=== PATIENT | female | born 1940 | race Hispanic/Latino ===

== ENCOUNTER 2016-06-21 14:25 | Observation (INO) ==
[2016-06-21] MEDS ORDERED: ASPIRIN PO STA (14:29)
--- NOTE | 2016-06-21 14:38 | EKG Report ---
Test Performed on : 06/21/2016 2:26:51 PM Test Reason : CHEST PAIN Blood Pressure : / mmHG Vent. Rate : 072 BPM Atrial Rate : 072 BPM P-R Int : 108 ms QRS Dur : 078 ms QT Int : 384 ms P-R-T Axes : 056 063 059 degrees QTc Int : 420 ms Sinus rhythm. with short IL Otherwise normal ECG When compared with ECG of 10-JUN-2016 11:16, No significant change was found Unconfirmed Result
[2016-06-21 14:53] LABS: MANUAL DIFF NEEDED? NO
[2016-06-21 14:56] LABS: BASO% 0.9 % (0.0-0.8); EOS# 0.12 X1000 (0.0-0.7); EOS% 1.7 % (0.0-10.0); HEMATOCRIT 37.6 % (37.0-47.0); HEMOGLOBIN 12.8 g/dL (12.0-16.0); IMM GRAN# 0.02 X1000 (0.0-0.04); IMM GRAN% 0.3 % (0.0-0.5); LYMPH# 2.18 X1000 (1.2-3.4); LYMPH% 31.2 % (20.5-51.1); MCH 32.3 PG (27-31); MCV 94.9 FL (81-99); MONO# 0.92 X1000 (0.11-0.59); MONO% 13.2 % (1.7-9.3); MPV 10.5 FL (7.4-10.4); NEUT% 52.7 % (42.2-75.2); PLT 236 X1000 (130-400); RBC 3.96 XMIL (4.2-5.4)
[2016-06-21 15:10] LABS: INR 0.93 (0.86-1.15); PROTIME 12.8 Seconds (12.1-15.5)
[2016-06-21 15:11] LABS: PTT PL 31.5 Seconds (22.6-43.9)
--- NOTE | 2016-06-21 15:19 | Diag Imaging Result Document ---
PROCEDURE NAME: CHEST-2 VIEWS - 06/21/2016 PA AND LATERAL RADIOGRAPH OF THE CHEST: COMPARISON: None available. FINDINGS: There is biapical pleural thickening. The lungs are grossly clear, otherwise. There is no definite pleural fluid collection. Cardiac silhouette and central vasculature are grossly unremarkable. IMPRESSION: Biapical pleural thickening. No evidence of acute pathology.
[2016-06-21 15:29] LABS: AGAP 14; ALBUMIN 4.3 g/dL (3.5-5.0); ALKALINE PHOSPHATASE 161 U/L (32-104); BUN 15 mg/dL (8-22); CALCIUM 9.6 mg/dL (8.8-10.2); CHLORIDE 102 mmol/L (98-107); CK PROFILE 84 U/L (24-173); COSMO 283; GOT 47 U/L (10-30); GPT 36 U/L (10-36); MAGNESIUM 2.1 mg/dL (1.5-2.7); POTASSIUM 3.4 mmol/L (3.5-5.1); SODIUM 140 mmol/L (136-145); TCO2 23 mmol/L (25-35)
--- NOTE | 2016-06-21 16:49 | EKG Report ---
Test Performed on : 06/21/2016 4:35:50 PM Test Reason : REPEAT Blood Pressure : / mmHG Vent. Rate : 062 BPM Atrial Rate : 062 BPM P-R Int : 128 ms QRS Dur : 078 ms QT Int : 414 ms P-R-T Axes : 075 072 082 degrees QTc Int : 420 ms Normal sinus rhythm. Normal ECG When compared with ECG of 21-JUN-2016 14:26, (Unconfirmed) No significant change was found Unconfirmed Result
[2016-06-21] MEDS ORDERED: MORPHINE IV PRN (17:43)
[2016-06-21] MEDS ORDERED: ZOFRAN IV PRN (17:43)
--- NOTE | 2016-06-21 17:44 | PROVIDER DOCUMENTATION ---
This chart was entered by Debbie Savage Scribe, acting as scribe for Buddy Cazares PA. HPI-Chest Pain - General Chief Complaint: Chest Pain Stated Complaint: CHEST PAIN Time Seen by Provider: 06/21/16 14:31 Source: patient Allergies/Adverse Reactions: Patient Allergies Allergy/AdvReac Type Severity Reaction Status Date / Time Penicillins Allergy Mild RASH Verified 06/21/16 14:29 Home Medications: Home Medication List Medication Instructions Recorded Confirmed Last Taken Type No Home Medications 06/22/12 06/22/12 Unknown History - History of Present Illness-CP Nature of Presenting Problem: 75 yo F presents to the ER with complaint of CP. States she had a similar episode last week. Yesterday had CP again so she went to her PCP, pain resolved by the time she got to Dr. Curran's office, PCP advised that if she ever had that pain again to go to the ER. Had L sided chest pain that radiates to the R. Location: reports: other (L sided) Chest Pain Radiation: reports: other (R side) Onset/Duration: just prior to arrival Nitro Today/Relief: no nitro taken today Aspirin Treatment Today: no aspirin today Review of Systems - Adult - REVIEW OF SYSTEMS - ADULT Constitutional: denies: chills, fever Eyes: reports: no symptoms reported Ears, Nose, Mouth & Throat: reports: no symptoms reported Cardiovascular: reports: chest pain. denies: palpitations Respiratory: denies: cough, shortness of breath Gastrointestinal: denies: diarrhea, nausea, vomiting Genitourinary: reports: no symptoms reported Musculoskeletal: reports: no symptoms reported Integumentary: reports: no symptoms reported Neurological: reports: no symptoms reported Psychiatric: reports: no symptoms reported Endocrine: reports: no symptoms reported Hematologic/Lymphatic: reports: no symptoms reported Allergic/Immunologic: reports: no symptoms reported All Other Systems: Reviewed and Negative Past History - Adult - PAST MEDICAL HISTORY-ADULT Review of Records: reports: Nursing Assessment Review, Medications Reviewed Cardiovascular: reports: HTN - PRIOR SURGERIES/PROCEDURES Surgical/Procedure History: reports: other (peritonitis) - IMMUNIZATION STATUS Childhood Immunizations: See Nurse Assessment Flu Vaccine: See Nurse Assessment Physical Exam-General - PHYSICAL EXAM-ADULT Initial Vital Signs Reviewed: Yes - CONSTITUTIONAL General Appearance: alert, no apparent distress - EYES Eyes: PERRL/EOMI, pink conjunctivae - HEAD, EARS, NOSE, MOUTH & THROAT HENMT: normocephalic/atraumatic, normal ENT inspection - NECK Neck: supple, normal inspection - RESPIRATORY Respiratory: no respiratory distress, no accessory muscle use - CARDIOVASCULAR Cardiovascular: normal peripheral pulses, regular rate, rhythm - GASTROINTESTINAL (ABDOMEN) Abdominal Exam: normal bowel sounds, non tender, soft - MUSCULOSKELETAL Back Exam: no CVA tenderness, no vertebral tenderness Extremity: normal gait, normal inspection - SKIN Integumentary: normal color, warm/dry - NEUROLOGIC Neurologic: grossly normal, no motor/sensory deficits - PSYCHIATRIC Psych/Mental Status: normal mood/affect, normal thought content, normal thought process, oriented x 3 Progress - PLAN OF CARE/RESULTS Progress/Plan/Lab Results: Vital Signs - 8 hr 06/21/16 14:30 06/21/16 16:07 06/21/16 16:55 Temperature 98.5 F 98 F Pulse Rate 74 62 62 Respiratory Rate 18 20 18 Blood Pressure 169/86 138/77 159/078 O2 Sat by Pulse Oximetry 98 97 95 Laboratory Results - last 24 hr 06/21/16 06/21/16 06/21/16 14:45 14:45 14:45 WBC RBC Hgb Hct MCV MCH MCHC RDW Std Deviation Plt Count MPV Immature Gran % (Auto) Neut % (Auto) Lymph % (Auto) Sampson % (Auto) Eos % (Auto) Baso % (Auto) Immature Gran # (Auto) Neut # (Auto) Lymph # (Auto) Sampson # (Auto) Eos # (Auto) Baso # (Auto) PT INR APTT (Factor Assay) D-Dimer Sodium 140 Potassium 3.4 L Chloride 102 Carbon Dioxide 23 L Anion Gap 14 BUN 15 Creatinine 0.7 Estimated GFR/1.73 m2 > 60 BUN/Creatinine Ratio 21 Glucose 142 H Calculated Osmolality 283 Calcium 9.6 Magnesium 2.1 Total Bilirubin 0.30 AST 47 H ALT 36 Alkaline Phosphatase 161 H Creatine Kinase 84 Troponin T < 0.010 [id number]-A-[id number] Pept 346 Total Protein 8.0 Albumin 4.3 Globulin 4.0 Albumin/Globulin Ratio 1.0 06/21/16 06/21/16 06/21/16 14:45 14:45 16:40 WBC 6.99 RBC 3.96 L Hgb 12.8 Hct 37.6 MCV 94.9 MCH 32.3 H MCHC 34.0 RDW Std Deviation 11.8 Plt Count 236 MPV 10.5 H Immature Gran % (Auto) 0.3 Neut % (Auto) 52.7 Lymph % (Auto) 31.2 Sampson % (Auto) 13.2 H Eos % (Auto) 1.7 Baso % (Auto) 0.9 H Immature Gran # (Auto) 0.02 Neut # (Auto) 3.69 Lymph # (Auto) 2.18 Sampson # (Auto) 0.92 H Eos # (Auto) 0.12 Baso # (Auto) 0.06 PT 12.8 INR 0.93 APTT (Factor Assay) 31.5 D-Dimer 0.47 Sodium Potassium Chloride Carbon Dioxide Anion Gap BUN Creatinine Estimated GFR/1.73 m2 BUN/Creatinine Ratio Glucose Calculated Osmolality Calcium Magnesium Total Bilirubin AST ALT Alkaline Phosphatase Creatine Kinase 78 Troponin T Hxs-L-Pywvdigzamw Pept Total Protein Albumin Globulin Albumin/Globulin Ratio 06/21/16 16:40 WBC RBC Hgb Hct MCV MCH MCHC RDW Std Deviation Plt Count MPV Immature Gran % (Auto) Neut % (Auto) Lymph % (Auto) Sampson % (Auto) Eos % (Auto) Baso % (Auto) Immature Gran # (Auto) Neut # (Auto) Lymph # (Auto) Sampson # (Auto) Eos # (Auto) Baso # (Auto) PT INR APTT (Factor Assay) D-Dimer Sodium Potassium Chloride Carbon Dioxide Anion Gap BUN Creatinine Estimated GFR/1.73 m2 BUN/Creatinine Ratio Glucose Calculated Osmolality Calcium Magnesium Total Bilirubin AST ALT Alkaline Phosphatase Creatine Kinase Troponin T < 0.010 Svk-C-Ctiigxwwuab Pept Total Protein Albumin Globulin Albumin/Globulin Ratio Orders Category Date Time Status Cardiac Monitoring DIRECTED Care 06/21/16 14:29 Active Saline Loc NOW Care 06/21/16 14:29 Active CHEST-2 VIEWS [RAD] Stat Exams 06/21/16 14:29 Draft CBC WITH ELECTRONIC DIFF [HEME] Stat Lab 06/21/16 14:45 Completed CK PROFILE [SP CHEM] Stat Lab 06/21/16 14:45 Completed CK PROFILE [SP CHEM] Stat Lab 06/21/16 16:40 Completed COMPREHENSIVE METABOLIC PANEL [CHEM] Stat Lab 06/21/16 14:[address] D-D[address]ER [address] [COAG] Stat Lab 06/21/16 14:45 Completed MAGNESIUM [CHEM] Stat Lab 06/21/16 14:45 Completed PRO B-NATRIURETIC PEPTIDE Stat Lab 06/21/16 14:45 Completed [address]IME WITH INR PL [COAG] Stat Lab 06/21/16 14:[address] [COAG] Stat Lab 06/21/16 14:45 Completed TROPONIN T Stat Lab 06/21/16 14:45 Completed TROPONIN T Stat Lab 06/21/16 16:40 Completed Aspirin Med 06/21/16 14:29 Discontinued 325 mg PO STAT STA EKG [EKG] Stat Ther 06/21/16 14:29 Draft EKG [EKG] Stat Ther 06/21/16 16:33 Draft Result Diagrams: 06/21/16 14:45 06/21/16 14:45 - EKG 1 Time of EKG reading by physician:: 14:26 EKG Read and Signed by:: Chi Verdin EKG Interpretation (*Must complete 3 of following elements*): Normal Rate: 72 Rhythm: sinus rhythm [place]: normal QRS: normal NM Interval: normal ST Wave: normal 2 Time of EKG reading by physician:: 16:35 EKG Read and Signed by:: Chi Verdin EKG Interpretation (*Must complete 3 of following elements*): Normal Rate: 62 Rhythm: normal sinus rhythm [place]: normal QRS: normal NM Interval: normal ST Wave: normal - XRAY 1 XRAY Study: Chest Impression: Abnormal (bilat pleural thickening, per radiologist) - CONSULTS/PCP/HOSPITALIST Notification #1 *Consult/PCP/Hospitalist*: Dr. Clark Time Discussed: 17:43 Consult Disposition: Admit Departure - Departure Time of Disposition Decision: 17:43 DIAGNOSIS: Chest pain at rest Disposition: ADMITTED INPATIENT 09 Certified Medical Emergency: Emergent Condition: Stable Referrals and Follow-Ups: DAPHNEY CURRAN [Primary Care Provider] - - Critical Care Note This patient required my direct & personal management of CC.: No Attestation - Physician/ NITHIN Attestation Patient care was provided by Advanced Practice Provider:: Yes Advanced Practice Provider:: Buddy Cazares Advanced Practice Provider documentation review:: The Mid-level provider documentation, treatment plan and medical decision making was reviewed by the physician who agrees with all treatment and medical decision making by the MLP. This chart was documented by the indicated scribe, (Debbie Savage Scribe) and accurately reflects the services I performed and decisions made by , Buddy Cazares PA, as attested by the provider's signature.
[2016-06-21] MEDS ORDERED: TYLENOL PO PRN (18:24)
--- NOTE | 2016-06-21 18:36 | HISTORY AND PHYSICAL ---
please delete MTDD
[2016-06-21] MEDS: PRILOSEC PO SCH (22:16)
[2016-06-22 04:16] LABS: HEMATOCRIT 34.1 % (37.0-47.0); HEMOGLOBIN 11.7 g/dL (12.0-16.0); MCH 32.4 PG (27-31); MCHC 34.3 g/dL (33-37); MCV 94.5 FL (81-99); MPV 10.2 FL (7.4-10.4); RBC 3.61 XMIL (4.2-5.4)
[2016-06-22 04:47] LABS: AGAP 11; BUN 15 mg/dL (8-22); CALCIUM 8.8 mg/dL (8.8-10.2); CHLORIDE 103 mmol/L (98-107); COSMO 272; POTASSIUM 3.8 mmol/L (3.5-5.1); SODIUM 136 mmol/L (136-145); TCO2 22 mmol/L (25-35)
[2016-06-22 05:56] VITALS: BP 114/74
[2016-06-22] MEDS ORDERED: MORPHINE IV PRN (07:28)
--- NOTE | 2016-06-22 08:28 | EKG Report ---
Test Performed on : 06/22/2016 08:17:43 AM Test Reason : chest pain Blood Pressure : / mmHG Vent. Rate : 058 BPM Atrial Rate : 058 BPM P-R Int : 132 ms QRS Dur : 076 ms QT Int : 428 ms P-R-T Axes : 074 071 078 degrees QTc Int : 420 ms Sinus bradycardia. Otherwise normal ECG When compared with ECG of 21-JUN-2016 16:35, No significant change was found Confirmed by Chi Verdin MD ([id number]) on 07/16/2016 10:16:07 PM
[2016-06-22] MEDS: PRILOSEC PO SCH (09:16)
--- NOTE | 2016-06-22 15:58 | HISTORY AND PHYSICAL ---
PRIMARY CARE PHYSICIAN: Dr. Alessandra Curran. CHIEF COMPLAINT: Chest pain. HISTORY OF PRESENT ILLNESS: This is a 75-year-old female who presented to the emergency room complaining of chest pain. She states that this pain has been present for 6 months, although over the past 2 weeks it has increased in severity and frequency. Therefore, she presented to the emergency room for further evaluation. She describes the pain as a sharp stabbing kind of pain. It is directly behind her left breast. She can identify no alleviating or exacerbating factors. She rates it as a 2/10 at its least and a 4-5/10 at its worst. It does subside spontaneously. She developed weakness and a feeling that she was going to pass out 2 weeks ago. She went to her primary care physician for further evaluation. She has had this once or twice over the 2 weeks along with her chest pain. She also has had other episodes of chest pain without these symptoms. She denies any palpitations, loss of consciousness, dizziness, nausea, vomiting , shortness of breath. EKG in the emergency room revealed sinus rhythm with nonspecific ST-T changes. Her troponins have been negative on multiple occasions. She is being admitted for further evaluation and treatment. PAST MEDICAL HISTORY: Hypertension. PAST SURGICAL HISTORY: Denies. SOCIAL HISTORY: Denies alcohol, tobacco, or illicit drug use. She does live with family members. ALLERGIES: Penicillin which causes a rash. HOME MEDICATIONS: Atenolol 25 mg daily and aspirin 81 mg daily. REVIEW OF SYSTEMS: A 14 point review of systems is discussed with the patient with pertinent positives stated in the HPI. She denied palpitations, dizziness, nausea, shortness of breath, diaphoresis, any cough, fever, chills, black or bloody vomitus, black or bloody stools, hematuria, dysuria. PHYSICAL EXAMINATION: GENERAL: This is a 75-year-old female who is lying in the bed with no distress. VITAL SIGNS: Blood pressure is 159/78 with a heart rate of 62, respirations are 18, temperature is 98.1 degrees with room air saturations are 95-97%. HEENT: Head is normocephalic, atraumatic. Pupils equal, round, react to light. EOMs are intact. Sclerae are anicteric. Mucous membranes are moist. NECK: Supple. Trachea midline. CARDIOVASCULAR: Regular rate and rhythm. S1 and S2 are appreciated. PULMONARY: Breath sounds are clear with no increased work of breathing noted. GASTROINTESTINAL: Abdomen is soft, nontender, nondistended with bowel sounds in all 4 quadrants. BACK: No CVAT. No spine tenderness. MUSCULOSKELETAL: Good range of motion of joints. EXTREMITIES: No clubbing, cyanosis, or edema. Pulses are palpable x4. Calves are nontender. NEUROLOGIC: She is alert and oriented. LABORATORY: WBC is 6.99 with hemoglobin 12.8, hematocrit 37.6 and platelets of 236,000. Sodium is 140, potassium 3.4, BUN 15, creatinine 0.7 with glucose of 142. Troponins have been negative on multiple occasions. Chest x-ray revealed no acute processes. ASSESSMENT AND PLAN: 1. Chest pain. She will be admitted to the hospital, placed on telemetry. We will continue to trend troponins. We will repeat electrocardiogram in the morning. 2. Hypertension. We will identify correct dosage of home medications and restart as appropriate. 3. Deep venous thrombosis prophylaxis, sequential Compression Devices. Gastrointestinal prophylaxis, Prilosec. Further treatments pending hospital course. Dictated by SHAHEED Harvey for Edilberto Clark MD cc: SHAHEED [facility]
--- NOTE | 2016-06-22 22:25 | DISCHARGE SUMMARY ---
ADMISSION DATE: 06/21/2016 DISCHARGE DATE: 06/22/2016 DIAGNOSES: 1. Chest pain. 2. Hypertension. DIAGNOSTICS: Chest x-ray revealed biapical pleural thickening with no evidence of acute pathology. HOSPITAL COURSE: Ms. Price presented with chest pain that she has had for 6 months. Over the last 2 weeks, pain has increased in severity from a 3/10 to 4-5/10. She did have 2 episodes where she felt weak all over. Mccrory like she might pass out. Within a minute or 2 after sitting, her symptoms did clear. Troponins were negative. EKGs revealed sinus rhythm with nonspecific ST-T wave changes. Telemetry: She was sinus rhythm throughout the hospitalization. She had no further episodes of chest pain or weakness while in the hospital. PHYSICAL EXAMINATION: Cardiovascular: Regular rate and rhythm. S1 and S2 appreciated. Pulmonary: Breath sounds are clear with no increased work of breathing noted. Gastrointestinal: Abdomen is soft, nontender, nondistended with bowel sounds in all 4 quadrants. Extremities: No clubbing, cyanosis, or edema. Pulses are palpable x4. Calves are nontender. DISCHARGE MEDICATIONS: 1. Aspirin 81 mg daily. 2. Atenolol 25 mg. she is to hold this until she is re-evaluated by her primary care physician. DISCHARGE ACTIVITY: As tolerated. DISCHARGE DIET: Healthy heart. FOLLOWUP: She needs to call Dr. Curran's office in the morning for an appointment hopefully this week where blood pressure can be re-evaluated and she could be instructed on her atenolol dose. TIME SPENT: This is a greater than 30 minute discharge from 11:45 to 12:17. Dictated by SHAHEED Harvey for Edilberto Clark MD cc: SHAHEED Harvey MD Johnna Langford, CRNP
== END 2016-06-22 14:25 | disposition home or self-care (01) ==
LOC: P.ED 14:25 → P.MEDSURG 14:25
PROVIDERS: ATTEND Family Medicine